=== PATIENT | male | born 1940 | race Two or more races ===

== ENCOUNTER 2022-09-24 09:04 | Outpatient (CLI) | payer OTHER | END 2022-09-24 09:30 | disposition home or self-care (01) | LOC: SONOGRAMA 09:04 | DX: K76.0 Fatty (change of) liver, not elsewhere classified (principal) ==

== ENCOUNTER 2022-12-04 09:04 | Outpatient (CLI) | payer OTHER | END 2022-12-04 09:10 | disposition home or self-care (01) | LOC: RAD 09:04 | PROVIDERS: ATTEND Internal Medicine Hematology & Oncology | DX: M06.9 Rheumatoid arthritis, unspecified (principal); R16.0 Hepatomegaly, not elsewhere classified; I10 Essential (primary) hypertension ==

== ENCOUNTER → 2022-12-06 | Outpatient (CLI) | payer OTHER | END | disposition home or self-care (01) | LOC: NUCLEAR 13:00 | DX: M81.0 Age-related osteoporosis without current pathological fracture (principal) ==